=== PATIENT | female | born 1980 | race African-American/Black ===

== ENCOUNTER 2018-09-22 08:35 | Emergency (ER) | payer OTHER | END 2018-09-22 10:22 | disposition home or self-care (01) | LOC: JERFT 08:35 ==

== ENCOUNTER → 2018-10-19 | Emergency (ER) | payer OTHER ==
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
[2018-10-19 06:27] VITALS: BP 142/86; PULSE 108; TEMP 97.7; BMI 28.3
== END | disposition left against medical advice (07) ==
LOC: JER 06:01
DX: Z53.21 Procedure and treatment not carried out due to patient leaving prior to being seen by health care provider (principal)
CPT/HCPCS: 99281-25

== ENCOUNTER 2019-04-16 13:53 | Emergency (ER) | payer OTHER ==
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
[2019-04-16 14:43] VITALS: BP 119/72; PULSE 86; TEMP 98.3; BMI 29.5
[2019-04-16] MEDS ORDERED: IBUPROFEN 400 MG TABLET (FP) PO ONE ×2 (15:26→15:41)
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
== END 2019-04-16 16:30 | disposition home or self-care (01) ==
LOC: JERFT 13:53
PROC: 2W3CX3Z Immobilization of Right Lower Arm using Brace (ICD-10-PCS; principal; 2019-04-16)
DX: S92.401A Displaced unspecified fracture of right great toe, initial encounter for closed fracture (principal); S63.501A Unspecified sprain of right wrist, initial encounter; M25.561 Pain in right knee; W22.8XXA Striking against or struck by other objects, initial encounter; Y93.89 Activity, other specified; Y92.89 Other specified places as the place of occurrence of the external cause; Y99.8 Other external cause status
CPT/HCPCS: 73110-TC-RT-FY; 73130-TC-RT-FY; 73610-TC-RT-FY; 73630-TC-RT-FY; 84703; 99281-25